=== PATIENT | female | born 1995 | race Caucasian/White ===

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

== ENCOUNTER 2017-02-28 11:44 | Emergency (ER) | payer OTHER ==
[2017-02-28 12:02] VITALS: BP 119/62; PULSE 77; TEMP 98.2; BMI 27.3
[2017-02-28] MEDS ORDERED: IBUPROFEN 600 MG TABLET (FP) PO ONE ×2 (13:16→13:22)
--- NOTE | 2017-02-28 13:21 | PDOC ---
History of Present Illness - General Chief Complaint: Injury Stated Complaint: LT ANKLE PAIN Time Seen by Provider: 02/28/17 13:05 History Source: Patient Exam Limitations: No Limitations - History of Present Illness Initial Comments: 02/28/17 13:22 My chief complaint: Left lateral ankle pain since yesterday that radiates up her leg History of present illness: Patient is a 21-year-old female with no significant medical problems here today complaining of left lateral ankle pain that radiates up her leg when she applies pressure to her foot. Patient reports that yesterday at work she was squatting with her left foot flexed and she started to feel pain in her left lateral ankle. Patient went home and elevated and ice her left lateral ankle and had noticed swelling however today swelling has resolved but patient still complaining of pain and left lateral ankle radiating up her lower left leg laterally pain is currently a 7 out of 10 when applying pressure to her left foot. Occurred: reports: yesterday Severity: Yes: moderate Lower Extremity Pain Location: left: ankle (lateraL ) Lower Ext. Injury Location - Specific Injury Location Ankle: left pain (LATERALLY ) Extremity Pain Location - Extremity Pain Location Extremity Pain Locations: left: ankle (LATERAL ) Past History - Past Medical History Allergies/Adverse Reactions: Allergies Allergy/AdvReac Type Severity Reaction Status Date / Time No Known Allergies Allergy Verified 02/28/17 12:02 Home Medications: Ambulatory Orders NK [No Known Home Medication] 02/28/17 COPD: No Other medical history: NONE - Immunization History Immunization Up to Date: Yes - Suicide/Smoking/Psychosocial Hx Smoking Status: No Smoking History: Never smoked Have you smoked in the past 12 months: No Number of Cigarettes Smoked Daily: 0 Hx Alcohol Use: No Drug/Substance Use Hx: No Substance Use Type: None Review of Systems - Review of Systems Able to Perform ROS?: Yes Constitutional: No: Symptoms Reported HEENTM: No: Symptoms Reported Respiratory: No: Symptoms reported Cardiac (ROS): No: Symptoms Reported Musculoskeletal: Yes: Joint Pain (LEFT LATERAL ANKLE ) Integumentary: No: Symptoms Reported Neurological: No: Symptoms reported *Physical Exam - Vital Signs Last Vital Signs Temp Pulse Resp BP Pulse Ox 98.2 F 77 20 119/62 99 02/28/17 12:00 02/28/17 12:00 02/28/17 12:00 02/28/17 12:00 02/28/17 12:00 - Physical Exam General Appearance: Yes: Appropriately Dressed Vascular Pulses: Doralis-Pedis (L): 4+ Extremity: positive: Normal Capillary Refill, Normal Inspection, Normal Range of Motion, Tender (LEFT LATERAL ANKLE ). negative: Swelling Integumentary: positive: Normal Color Neurologic: positive: Alert, Normal Response, Motor Strength 5/5 (LEFT LOWER EXTREMITY ), Respond to painful stimul (LEFT FOOT, ANKLE, LOWER LEG ), Responsive. negative: Numbness, Sensory Deficit Deep Tendon Reflexes: Ankle (L): 4+ (NO INDURATION ) Procedures - Consent Consent obtained: From Patient - Splinting Splint Location: Left: Foot, Ankle Pre-Proc Neuro Vasc Exam: normal Pre-Made Type: aircast Titi Bandage: 3" Sling: No Complications: No Post splint xray: No Medical Decision Making - Medical Decision Making 02/28/17 13:24 Patient is a 21-year-old female with no significant medical problems here today complaining of left lateral ankle pain that radiates up her leg when she applies pressure to her foot. Patient reports that yesterday at work she was squatting with her left foot flexed and she started to feel pain in her left lateral ankle. Patient went home and elevated and ice her left lateral ankle and had noticed swelling however today swelling has resolved but patient still complaining of pain and left lateral ankle radiating up her lower left leg laterally pain is currently a 7 out of 10 when applying pressure to her left foot. Patient denies any chance of . LEFT ANKLE SPRAIN PLAN: IBUPROFEN 600 MG PO NOW TITI WRAP 3 INCH LEFT ANKLE WITH AIRCAST *DC/Admit/Observation/Transfer Diagnosis at time of Disposition: Sprain of ankle, left Qualifiers: Encounter type: initial encounter Involved ligament of ankle: unspecified ligament Qualified Code(s): S93.402A - Sprain of unspecified ligament of left ankle, initial encounter - Discharge Dispostion Disposition: HOME Condition at time of disposition: Stable - Referrals Referrals: Alesha Richards NP [Primary Care Provider] - Hossein Melara MD [Staff Physician] - - Patient Instructions Additional Instructions: Continue to elevate her left leg as much as possible Keep Titi wrap wrap on during the day and air cast may take off at night Follow up with orthopedist if pain continues Take ibuprofen as needed as directed by computer science professor for pain Patient voiced understanding of discharge instructions and all questions were answered - Post Discharge Activity Forms/Work/School Notes: Back to Work
== END 2017-02-28 13:37 | disposition home or self-care (01) ==
LOC: JERFT 11:44
PROC: 2W3RX1Z Immobilization of Left Lower Leg using Splint (ICD-10-PCS; principal; 2017-02-28)
DX: S93.402A Sprain of unspecified ligament of left ankle, initial encounter (principal); X50.1XXA Overexertion from prolonged static or awkward postures, initial encounter; Y93.89 Activity, other specified; Y92.512 Supermarket, store or market as the place of occurrence of the external cause; Y99.0 Civilian activity done for income or pay
CPT/HCPCS: 29515; 99281-25

== ENCOUNTER 2017-10-07 11:27 | Emergency (ER) | payer OTHER ==
[2017-10-07 11:39] VITALS: BP 112/41; PULSE 51; TEMP 97; BMI 26.9
[2017-10-07] MEDS ORDERED: SODIUM CHLORIDE FOR INHALATION 3 ML VIAL.NEB IH ONE (11:41)
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
[2017-10-07 12:53] LABS: VENOUS PC02 46.2 mmHg (38-52); VENOUS PH 7.38 (7.32-7.42); VENOUS PO2 33.3 mmHg (28-48)
== END 2017-10-07 13:17 | disposition home or self-care (01) ==
LOC: JERFT 11:27
DX: J70.5 Respiratory conditions due to smoke inhalation (principal); R51 Headache
CPT/HCPCS: 82375; 82803; 99281-25